=== PATIENT | female | born 1985 | race Caucasian/White ===

== ENCOUNTER 2016-10-16 17:44 | Emergency (ER) | payer SELFPAY ==
[~2016-10-16] VITALS: Ht 162.6 cm; Wt 110.0 kg
[2016-10-16 17:46] VITALS: BP 223/129; PULSE 97; RESP 17; TEMP 98.2; O2SAT 97
[2016-10-16 18:01] VITALS: BP 190/102
[2016-10-16 23:46] VITALS: BP 170/106; PULSE 85; RESP 18; TEMP 97.7; O2SAT 100
--- NOTE | 2016-10-17 00:22 | PD ---
HPI Chief Complaint: Hypertension Time Seen by Provider: 00:03 Travel History International Travel<30 days: No Contact w/Intl Traveler<30days: No Traveled to known affect area: No History of Present Illness HPI The patient is a 31-year-old female who presents to the emergency department for an abscess in the left groin as well as high blood pressure. The patient notes over the last several days she's had an increasing lump in the left groin which is causing pain shoot down the medial aspect of the left thigh. She now notes the area is draining and states it is exquisitely painful. The patient also complains of elevated blood pressure, with occasional headaches, chest discomfort, and blurry vision. The patient denies any acute chest pain, headache, or blurry vision upon arrival. However, she does note her blood pressure is been elevated. The patient states she is currently without insurance until one month from now, does have an appointment in November to see a physician, but states is greater than 30 days away. The patient denies any current chest pain, shortness breath, nausea, vomiting, or diaphoresis. She does have a history of shaving in the labial area, but states she has not shaved in that area for some time. The patient's symptoms are moderate, there are no alleviating or exacerbating factors. PFSH Past Medical History Cardiovascular Problems: Yes (HTN) Diminished Hearing: No Tetanus Vaccination: Unknown Influenza Vaccination: Yes ?: Not LMP: 10/04/16 : 3 Para: 3 Past Surgical History Section: Yes (X1) Gynecologic Surgery: Yes (LEFT OVARY CYST REMOVAL) Social History Alcohol Use: No Tobacco Use: No Substance Use: No Allergies-Medications (Allergen,Severity, Reaction): Coded Allergies: No Known Allergies (Unverified , 10/16/16) Review of Systems Except as stated in HPI: all other systems reviewed are Neg General / Constitutional: No: Fever HENT: Positive: Headaches (intermittent headaches, currently denies headache) Cardiovascular: Positive: Chest Pain or Discomfort (intermittent chest discomfort, currently denies chest discomfort), No: Diaphoresis Respiratory: No: Shortness of Breath Gastrointestinal: No: Nausea, Vomiting Musculoskeletal: No: Myalgias, Arthralgias Skin: Positive Other (as noted in the history of present illness) Physical Exam Narrative GENERAL: Awake, alert, pleasant 31-year-old female who appears her stated age and is in no acute respiratory distress. SKIN: Warm and dry. HEAD: Atraumatic. Normocephalic. EYES: No injection or drainage. ENT: No nasal bleeding or discharge. Mucous membranes pink and moist. NECK: Trachea midline. No JVD. CARDIOVASCULAR: Regular rate and rhythm. No murmur appreciated. RESPIRATORY: No accessory muscle use. Clear to auscultation. Breath sounds equal bilaterally. GASTROINTESTINAL: Abdomen soft, non-tender, nondistended. Genitourinary: The exam was completed in the presence of a female nurse. External examination of the left mons reveals an abscess that is draining that is approximately 2 cm in diameter exquisitely painful. It is self draining. MUSCULOSKELETAL: No obvious deformities. No clubbing. No cyanosis. No edema. NEUROLOGICAL: Awake and alert. No obvious cranial nerve deficits. Motor grossly within normal limits. Normal speech. PSYCHIATRIC: Appropriate mood and affect; insight and judgment normal. Data Data Last Documented VS Vital Signs Date Time Temp Pulse Resp B/P Pulse Ox O2 Delivery O2 Flow Rate FiO2 10/17/16 01:52 83 18 140/82 100 Room Air 10/16/16 23:46 97.7 Orders Electrocardiogram (10/16/16 ) Wound Culture And Gram Stain (10/17/16 00:17) Ketorolac Inj (Toradol Inj) (10/17/16 00:30) Amlodipine (Norvasc) (10/17/16 00:30) Troponin I (10/17/16 00:22) Creatine Kinase (Cpk) (10/17/16 00:22) Sulfamet-Trimeth Ds 800-160 Mg (Bactrim (10/17/16 00:30) Basic Metabolic Panel (Bmp) (10/17/16 00:30) Ondansetron Inj (Zofran Inj) (10/17/16 01:15) Labs Laboratory Tests Test 10/17/16 00:30 Sodium Level 140 MEQ/L Potassium Level 3.8 MEQ/L Chloride Level 104 MEQ/L Carbon Dioxide Level 29.1 MEQ/L Anion Gap 7 MEQ/L Blood Urea Nitrogen 13 MG/DL Creatinine 0.64 MG/DL Estimat Glomerular Filtration 107 ML/MIN Rate Random Glucose 88 MG/DL Calcium Level 9.0 MG/DL Total Creatine Kinase 63 U/L Troponin I LESS THAN 0.02 NG/ML [facility] Medical Decision Making Medical Screen Exam Complete: Yes Emergency Medical Condition: Yes Medical Record Reviewed: Yes Interpretation(s) EKG reveals normal sinus rhythm with a rate in 90. Q wave and inverted T-wave in lead 3. Laboratory Tests Test 10/17/16 00:30 Sodium Level 140 MEQ/L Potassium Level 3.8 MEQ/L Chloride Level 104 MEQ/L Carbon Dioxide Level 29.1 MEQ/L Anion Gap 7 MEQ/L Blood Urea Nitrogen 13 MG/DL Creatinine 0.64 MG/DL Estimat Glomerular Filtration 107 ML/MIN Rate Random Glucose 88 MG/DL Calcium Level 9.0 MG/DL Total Creatine Kinase 63 U/L Troponin I LESS THAN 0.02 NG/ML Differential Diagnosis Differential diagnosis includes hypertension, hypertensive urgency, hypertensive emergency, abscess, folliculitis, carbuncle, furuncle. Narrative Course The patient has a self draining abscess in the left inguinal region, a culture was obtained. I was able to apply pressure to the surrounding area and drain the abscess. The patient is advised to apply warm compresses to the affected area to keep it draining. The patient was administered Bactrim orally. The patient has a history of hypertension and was placed on lisinopril in the past, however, states she had a dry cough and was taken off the lisinopril. She was then placed on metoprolol, however, ran out of her metoprolol. I will place the patient on Norvasc, she was administered her first dose of Norvasc in the emergency department. She is advised to monitor her blood pressure in the morning to keep a log until she is seen by her primary physician. She is advised to cut the Norvasc in half if her blood pressure is lower than 110/70 or she has symptoms such as orthostatic hypotension or dizziness. The patient agrees and understands. EKG was ordered and interpreted. BMP and troponin sent to lab. Labs are unremarkable. The patient will be discharged home on Bactrim and pain medication as well as Norvasc. She is advised to return if symptoms worsen or progress. Diagnosis Primary Impression: Hypertension Qualified Code: I10 - Essential hypertension Additional Impression: Abscess of groin, left Patient Instructions: General Instructions Additional Instructions: Medications as directed. Follow-up with a primary physician. Apply warm compresses to the left groin to continue draining. Return if symptoms worsen or progress. Med/Other Pt SpecificInfo: Prescription(s) given Scripts Ibuprofen 600 Mg [id number] Mg PO Q6H PRN (Pain/Inflammation) #20 TAB Ref 0 Prov:Jayro Riggs MD 10/17/16 Sulfamethoxazole-Trimethoprim (Bactrim DS)800-160 Mg Tab1 Tab PO BID #14 TAB Ref 0 Prov:Jayro Riggs MD 10/17/16 Amlodipine (Norvasc)10 Mg Tab10 Mg PO DAILY #30 TAB Ref 1 Prov:Jayro Riggs MD 10/17/16 Disposition: 01 DISCHARGE HOME Condition: Stable Jayro Riggs MD Oct 17, 2016 00:22
[2016-10-17] MEDS ORDERED: KETOROLAC TROMETHAMINE 30 MG/ML (IVP) VIAL IV PUSH ONE (00:30)
[2016-10-17] MEDS ORDERED: SULFAMETHOXAZOLE-TRIMETHOPRIM DS 800-160 MG TAB PO ONE (00:30)
[2016-10-17 00:37] VITALS: BP 174/84; PULSE 73; RESP 18; O2SAT 99
[2016-10-17 01:11] LABS: ANION GAP 7 MEQ/L (5-15); BICARBONATE 29.1 MEQ/L (21.0-32.0); CHLORIDE 104 MEQ/L (98-107); GLOMERULAR FILTRATION RATE 107 ML/MIN (>89); POTASSIUM 3.8 MEQ/L (3.5-5.1); SODIUM (NA) 140 MEQ/L (136-145)
[2016-10-17] MEDS ORDERED: ONDANSETRON HCL 4 MG/2 ML VIAL IV PUSH ONE (01:15)
[2016-10-17 01:18] LABS: BLOOD UREA NITROGEN 13 MG/DL (7-18)
[2016-10-17 01:34] LABS: CREATINE KINASE 63 U/L (26-192)
[2016-10-17 01:52] VITALS: BP 140/82; PULSE 83; RESP 18; O2SAT 100
[2016-10-17] MEDS ORDERED: IBUP-232 PO (02:05)
[2016-10-17] MEDS ORDERED: AMLO10 PO (02:05)
[2016-10-17] MEDS ORDERED: BACT800T5 PO (02:05)
--- NOTE | 2016-10-17 19:44 | EKG ---
Date Performed: 10/16/2016 Time Performed: 18:11:42 PTAGE: 31 years EKG: Sinus rhythm NORMAL ECG NO PREVIOUS TRACING DOCTOR: Arturo Betts Interpretating Date/Time 10/17/2016 19:43:02
== END 2016-10-17 02:13 | disposition home or self-care (01) ==
LOC: NEPC 17:44
DX: I10 Essential (primary) hypertension (principal); L02.214 Cutaneous abscess of groin; B95.7 Other staphylococcus as the cause of diseases classified elsewhere; R51 Headache; R07.89 Other chest pain
CPT/HCPCS: 80048; 82550; 84484; 86403; 87070; 87077; 87186; 87205; 93005; 96374; 96375; 99283; J1885; J2405